=== PATIENT | male | born 1980 | race Caucasian/White ===

== ENCOUNTER 2024-07-10 09:52 | Emergency (ER) | payer SELFPAY ==
[2024-07-10 09:55] VITALS: BP 133/81
--- NOTE | 2024-07-10 10:57 | ED.GENMED ---
History of Present Illness
General
Chief Complaint: Skin Surface Trauma
Source: patient
Exam Limitations: none
Time Seen by Provider: 07/10/24 10:37
History of Present Illness
History of Present Illness:
43yo right hand dominant male with a history of hyperlipidemia presenting with his for evaluation of a left index finger laceration that was sustained less than one hour ago. Patient was using a drill bit when he accidentally cut himself in the
left index finger. He came immediately to the ED for evaluation. No paresthesias. Unknown last Tdap.
Past History
Past History
ED Past Medical History: None
ED Past Surgical History: None
Social History
Tobacco: Non-smoker
Alcohol: Occasional
Drug: None
Personal:
Living: with family
Phy Exam
General Physical Exam
General Presentation: well appearing and no apparent distress
General Skin: warm and dry
General Habitus: normal
General Mental: alert
ENT Exam
ENT Exam: normocephalic
Musculoskeletal Exam
Musculoskeletal Exam: other (Left index finger: Avulsion type laceration present to medial aspect of digit near DIP joint with venous oozing. ROM of DIP, PIP, and MCP joint intact. Cap refill and sensation intact at fingertip.)
Skin Exam
Skin Exam: normal color and warm/dry
Psychiatric Exam
Psychiatric Exam: normal mood/affect
Course
Orders/Labs/Results
Orders:
Orders
07/10/24 10:41
Tetanus/Diphth/Acelpertussis [Adacel] 0.5 ml IM .ONCE ONE
CR Finger(s)/thumb Min 2 Vw Lt Urgent
Comment:
Reason For Exam: Index finger laceration
07/10/24 12:06
Acetaminophen [Tylenol] 1,000 mg .ROUTE .STK-MED ONE
Vital Signs
Initial and Last Documented VS:
Initial Vital Signs
Temp Pulse Resp BP Pulse Ox
98.1 F 63 16 133/81 96
07/10/24 09:55 07/10/24 09:55 07/10/24 09:55 07/10/24 09:55 07/10/24 09:55
Last Documented Vital Signs
Temp Pulse Resp BP Pulse Ox
98.5 F 82 20 136/81 98
07/10/24 11:40 07/10/24 11:40 07/10/24 11:40 07/10/24 11:40 07/10/24 11:40
Procedures
Laceration Closure
Left Second Finger:
Size of Wound in cm: 3
Description of Wound Edges: ragged
Preparation: cleaned with saline
Anesthesia: Digital-Regional
Wound exploration: extensive cleaning of contaminated wound and explored to base- no FB
Type of Closure: single layer closure
Skin Closure Material: 4-0 nylon
Number of sutures: 3
MDM/Problems Addressed
Differential Diagnosis Includes:
43yoM here with a L index finger laceration that was caused by a drill. Avulsion laceration noted to lateral digit. Digit neurovascularly intact. No clinical evidence of tendon injury. Retention sutures placed as above. Laceration unable to be
completely closed due to the avulsion. Dressing applied and home wound care discussed. Advised suture removal in 10-14 days and return to the ED with any signs of infection.
*Critical Care Note
Total Time (30-74mins, 75-104mins- exclusive of procedures): Not Applicable
Update Note
Update Note:
After discharge, radiology read finger x-rays and distal phalanx fracture noted. Patient called and notified of result. Prescription for Keflex called to the pharmacy. He will return to the ED to obtain finger splint and was advised to f/u with
orthopedics.
ED Attending Note
-
Portions of this chart may have been created with voice recognition software.� Occasional wrong word or��sound alike� substitutions may have occurred due to the inherent limitations of voice recognition software.
Discharge Plan
Departure
Patient Disposition: Home (Routine Discharge)
Date of Disposition: 07/10/24
Time of Disposition: 12:01
Patient with high blood pressure during this ER visit?: No
Discharge Problem:
Laceration of left index finger, Fracture of distal phalanx of finger of left hand
Instructions: Laceration Repair With Stitches (DC)
Prescriptions:
New
cephalexin 500 mg capsule
500 mg PO Q6H 7 Days Qty: 28 0RF
Referrals:
Ricardo Schafer I., DO [Family Provider] -
Activity Restrictions/Additional Instructions:
Change dressings daily. Keep wound clean and dry. Sutures need to be removed in 10-14 days.
Return to the ER with any signs of infection.
Interventions
Interventions:
*Risk Screen - Suicide Last Done: 07/10/24 11:40
*General Assessment Last Done: 07/10/24 11:40
*Neglect/Abuse Screening Last Done: 07/10/24 11:40
*ED- Fall Risk Assessment Last Done: 07/10/24 11:40
*ED COVID-19 Vaccine History Last Done: 07/10/24 11:40
*Nursing Disposition Last Done: 07/10/24 12:12
ED-Skin Assessment Last Done: 07/10/24 11:40
Discharge Date and Time
Discharge Date/Time: 07/10/24 12:13
Print Language: LAO
[2024-07-10 11:40] VITALS: BP 136/81; BMI 25.1
[2024-07-10] MEDS: ADACEL 0.5 ML IM (12:07)
== END 2024-07-10 12:13 | disposition home or self-care (01) ==
LOC: EMR 09:52
PROVIDERS: EMERGENCY PHYSICIAN Emergency Medicine; FAMILY PHYSICIAN Internal Medicine
DX: S62.631B Displaced fracture of distal phalanx of left index finger, initial encounter for open fracture (principal); W29.8XXA Contact with other powered hand tools and household machinery, initial encounter; E78.5 Hyperlipidemia, unspecified; Z23 Encounter for immunization
CPT/HCPCS: 12002; 90471; 99283; 73140; 90715

== ENCOUNTER 2024-11-24 06:23 | Day surgery (SDC) | payer BC, SELFPAY | END 2024-11-24 10:02 | disposition home or self-care (01) | LOC: GI 06:23 | PROVIDERS: ATTENDING PHYSICIAN Internal Medicine Gastroenterology | DX: Z12.11 Encounter for screening for malignant neoplasm of colon (principal); K64.8 Other hemorrhoids; K29.70 Gastritis, unspecified, without bleeding; K31.7 Polyp of stomach and duodenum; K31.89 Other diseases of stomach and duodenum; Z86.0100 Personal history of colon polyps, unspecified; Z80.0 Family history of malignant neoplasm of digestive organs | CPT/HCPCS: 43239; G0105; 88305; 88342 ==